=== PATIENT | male | born 1995 | race American Indian/Alaskan Native ===

== ENCOUNTER 2021-07-11 03:57 | Emergency (ER) | payer SELFPAY ==
[~2021-07-11] VITALS: Ht 167.6 cm; Wt 72.6 kg
[2021-07-11] MEDS ORDERED: KETOROLAC TROMETH 60MG/2ML VIAL IM ONE (05:00)
[2021-07-11 08:33] VITALS: BP 132/69
== END 2021-07-11 08:46 | disposition home or self-care (01) ==
LOC: ER 03:57
DX: S53.105A Unspecified dislocation of left ulnohumeral joint, initial encounter (principal); X50.0XXA Overexertion from strenuous movement or load, initial encounter; Y93.89 Activity, other specified; Y92.89 Other specified places as the place of occurrence of the external cause; Y99.8 Other external cause status
CPT/HCPCS: 24600; 73070; 73080; 96372; 99284; J1885; 29105